=== PATIENT | female | born 1955 | race Caucasian/White ===

== ENCOUNTER 2022-04-14 11:50 | Outpatient (CLI) | payer MEDICARE, OTHER, SELFPAY ==
--- OUTSIDE RECORDS SUMMARY | 2022-04-14 11:53 | XMS_ITS ---
:1955 Author Care Team Providers Name Role Phone Selena Presley A Primary Care Provider Unavailable Allergies Code Code System Name Reaction Severity Status Onset Penicillins ? ? Active ? Sulfa (Sulfonamide Antibiotics) ? ? Active ? Medications Name Status Start Date Stop Date ? ? amitriptyline 50 mg tablet Active ? Not a vailable atorvastatin 20 mg tablet Active ? Not av ailable TAKE ONE TABLET BY MOUTH ONE TIME DAILY carvedilol 12.5 mg tablet Active ? Not av ailable cholecalciferol (vitamin D3) 125 mcg (5,000 unit) tablet Active ? Not available Take 1 tablet every day by oral route. epinephrine 0.3 mg/0.3 mL injection, auto-injector Active ? Not available Take 0.3 mL as needed by injection route. Flovent HFA 110 mcg/actuation aerosol inhaler Active ? Not available Inhale 2 puffs twice a day by inhalation route. hydrocodone 10 mg-acetaminophen 325 mg tablet Completed ? 10/21/2018 hydrocodone 5 mg-acetaminophen 325 mg tablet Active ? Not available TAKE 0.5 to 1 TABLET BY ORAL ROUTE EVERY 6 HOURS NEEDED FOR PAIN levothyroxine 50 mcg tablet Active ? Not available levothyroxine 75 mcg tablet Active ? Not available TAKE ONE TABLET BY MOUTH ONE TIME DAILY losartan 100 mg tablet Active ? Not avail able losartan 50 mg tablet Active ? Not availa ble Take 2 tablets every day by oral route. Medrol (Sathya) 4 mg tablets in a dose pack Completed ? 04/14/2018 as directed with food metformin 500 mg tablet Active ? Not avai lable metoprolol succinate ER 100 mg tablet,extended release 24 hr Act galilea ? Not available Take 1 tablet every day by oral route. mupirocin 2 % topical ointment Active ? N ot available pravastatin 20 mg tablet Active ? Not mookie ilable ProAir HFA 90 mcg/actuation aerosol inhaler Active ? Not available Inhale 2 puffs every 4 hours by inhalation route. sumatriptan 50 mg tablet Active ? Not mookie ilable TAKE 1 TABLET BY MOUTH NEEDED DIRECTED temazepam 15 mg capsule Active ? Not avai lable Take 1 capsule every day by oral route. triamcinolone acetonide 0.1 % topical cream Active ? Not available APPLY A THIN LAYER TO THE AFFECTED AREA(S) BY TOPICAL ROUTE 2 T IMES PER DAY triamterene 75 mg-hydrochlorothiazide 50 mg tablet Active ? Not available TAKE ONE TABLET BY MOUTH ONE TIME DAILY Problems Name Status Onset Date Source ? Hypertensive Disorder Active 03/02/2018 ? Hypothyroidism Active 04/14/2018 ? Hyperlipidemia Active 04/14/2018 ? Obstructive Sleep Apnea Syndrome Active 04/14/2018 ? Chronic Pain Active 04/14/2018 ? Asthma Active 04/14/2018 ? Chronic Kidney Disease Stage 4 Active 04/14/2018 ? Hyperglycemia Active 04/14/2018 ? Hypoxia Active 04/14/2018 ? Adhesive Capsulitis of Left Shoulder Active 04/14/2018 ? Insomnia Active 12/01/2018 ? Procedures Date Name Performed by ? ? Delivery Information not avai lable Notes: 1976 ? Delivery Information not avai lable Notes: 1974 04/16/2018 XR, Chest, 2 View Information not avai lable Results Lab Results Date Name Specimen Result Interpretation Description Value Range Status Address ? 04/13/2018 Microalbumin/creatinine, ? Creatinine, 78. 0 not Final [facility]: Mass Ratio, Urine Urine mg/dL estab. 8490 mg/dL [address] ? ? ? Albumin, 369.8 not Final [facility] : Urine ug/mL estab. 8490 ug/mL [address] [place] ? ? Abo Alb/creat 474.1 0.0-30. Final [facility]: ve Ratio mg/g 0 mg/g 8490 Hig creat creat [address] [facility] 04/13/2018 Culture, Urine ? Urine final ? Final [facility]: Culture,compr report [id number] ehensive [address] [place] ? ? ? Result 1 comment ? Final [facility] p: [address] 04/13/2018 Urinalysis, Dipstick ? Leukocytes 125, ++ ? ? Main Office: [address] [address], [place] ? ? ? Nitrite negativ ? ? Main e Office: [address], [place] ? ? ? Urobilinogen N ? ? Jami n Office: [address], [place] ? ? ? Protein 30, + ? ? Main Office: [address], [place] ? ? ? Ph 6 ? ? Main Office: [address], [place] ? ? ? Blood ++ ? ? Main Office: [address], [place] ? ? ? Specific 1.015 ? ? Main [place] Office: [address], [place] ? ? ? Ketone N ? ? Main Office: [address], [place] ? ? ? Bilirubin N ? ? Main Office: [address], [place] ? ? ? Glucose N ? ? Main Office: [address], [place] ? ? ? Appearance Cloudy ? ? Main Office: [address], [place] ? ? ? Color Light ? ? Main [place] Office: [address], [place] 04/12/2018 CBC W/ Auto Diff ? Wbc 8.1 3.4-10. Fi nal [facility]: x10e3/u 8 8490 L x10e3/u [address] [place], [place] ? ? ? Rbc 4.42 3.77-5. Final [facility]: x10e6/u 28 8490 L x10e6/u [address] Angie [place], [place] ? ? ? Hemoglobin 13.1 11.1-15 Final [facility]: g/dL .9 g/dL [address] [place], [place] ? ? ? Hematocrit 39.4 % 34.0-46 Final [facility]: .6 % [address] [place], [place] ? ? ? Mcv 89 fL 79-97 Final [facility]: fL [address] [place], [place] ? ? ? Mch 29.6 pg 26.6-33 Final [facility]: .[address] [place], [place] ? ? ? Mchc 33.2 31.5-35 Final [facility]: g/dL .7 g/dL [address], [place] ? ? ? Rdw 14.3 % 12.3-15 Final [facility]: .4 % [address], [place] ? ? ? Platelets 289 150-379 Final [facility]: x10e3/u x10e3/u [address], [place] ? ? ? Neutrophils 62 % not Final [facility]: estab. 8490 % [address], [place] ? ? ? Lymphs 28 % not Final [facility]: estab. 8490 % [address], [place] ? ? ? Monocytes 6 % not Final [facility]: estab. 8490 % [address], [place] ? ? ? Eos 2 % not Final [facility]: estab. 8490 % [address], [place] ? ? ? Basos 1 % not Final [facility]: estab. 8490 % [address], [place] ? ? ? 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 Cancell [facility]: Cells ed [address], [place] ? ? ? Neutrophils 5.2 1.4-7.0 Final [facility]: (Absolute) x10e3/u x10e3/u [address], [place] ? ? ? Lymphs 2.3 0.7-3.1 Final [facility]: (Absolute) x10e3/u x10e3/u [address], [place] ? ? ? Monocytes(ab 0.5 0.1-0.9 Final [facility]: solute) x10e3/u x10e3/u [address], [place] ? ? ? Eos 0.2 0.0-0.4 Final [facility]: (Absolute) x10e3/u x10e3/u [address], [place] ? ? ? Baso 0.1 0.0-0.2 Final [facility]: (Absolute) x10e3/u x10e3/u [address], [place] ? ? ? Immature 1 % not Final [facility] : Granulocytes estab. 8490 % [address], [place] ? ? ? Immature 0.0 0.0-0.1 Final [facility]: Grans (Abs) x10e3/u x10e3/u [address] [place], [place] ? ? ? Nrbc smocking machine operator ? Cancell [facility]: ed [address] [place], [place] ? ? ? 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 Cancell [facility]: Comments: ed [address] [place], [place] 04/12/2018 CMP, Serum or Plasma Abo Glucose 109 65-9 9 Final [facility]: ve mg/dL mg/dL [address], [place] ? ? Abo Bun 34 8-27 Final [facility]: ve mg/dL mg/dL [address] ye [place], [place] ? ? Abo Creatinine 1.45 0.57-1. Final [facility]: ve mg/dL 00 8490 Hig mg/dL [address] ye Churchill [place], [place] ? ? Bel eGFR If 38 >59 Final [facility]: ow Nonafricn AM mL/min/ mL/min/ 84 90 Low 1.[address], [place] ? ? Bel eGFR If 44 >59 Final [facility]: ow Africn AM mL/min/ mL/min/ 8490 Low 1.[address], [place] ? ? ? BUN/creatini 23 12-28 Final [facility]: ne Ratio [address], [place] ? ? ? Sodium 141 134-144 Final [facility]: mmol/L mmol/L [address] [place], [place] ? ? ? Potassium 4.2 3.5-5.2 Final [facility]: mmol/L mmol/L [address], [place] ? ? ? Chloride 102 96-106 Final [facility] : mmol/L mmol/L [address], [place] ? ? ? Carbon 23 20-29 Final [facility]: Dioxide, mmol/L mmol/L [address], [place] ? ? ? Calcium 9.5 8.7-10. Final [facility] : mg/dL 3 mg/dL [address], [place] ? ? ? Protein, 7.1 6.0-8.5 Final [facility]: Total g/dL g/dL [address], [place] ? ? ? Albumin 3.9 3.6-4.8 Final [facility] : g/dL g/dL [address], [place] ? ? ? Globulin, 3.2 1.5-4.5 Final [facility]: Total g/dL g/dL [address] [place], [place] ? ? ? A/g Ratio 1.2 1.2-2.2 Final [facility]: [address] [place], [place] ? ? ? Bilirubin, 0.7 0.0-1.2 Final [facility]: Total mg/dL mg/dL [address] [place], [place] ? ? ? Alkaline 94 IU/L 39-117 Final [facility]: Phosphatase IU/L [address] [place], [place] ? ? ? Ast (Sgot) 18 IU/L 0-40 Final [facility]: IU/L [address] [place], [place] ? ? ? Alt (Sgpt) 22 IU/L 0-32 Final [facility]: IU/L [address] [place], [place] 04/12/2018 Lipid Panel, Serum ? Cholesterol, 184 1 00-199 Final [facility]: Total mg/dL mg/dL [address] [place], [place] ? ? Abo Triglyceride 181 0-149 Final [facility]: ve s mg/dL mg/dL [address] [place], [place] ? ? ? HDL 43 >39 Final [facility]: Cholesterol mg/dL mg/dL [address] [place], [place] ? ? ? VLDL 36 5-40 Final [facility]: Cholesterol mg/dL mg/dL [address] [place], [place] ? ? Abo LDL 105 0-99 Final [facility]: ve Cholesterol mg/dL mg/dL [address] [place], [place] ? ? ? 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 Cancell [facility]: ed [address] [place], [place] 04/12/2018 HbA1C (Hemoglobin a1C), Abo Hemoglobin 5.9 % 4.8-5.6 Final [facility]: Blood ve a1C % [address] [place], [facility] 04/12/2018 TSH, Ultra-sensitive, ? Tsh 3.090 0.450 -4 Final [facility]: Serum uIU/mL .500 8490 uIU/mL [address] [place], [place] 04/12/2018 Vitamin D, 25-Hydroxy, ? Vitamin D, 47.3 30.0-10 Final [facility]: Total, Serum 25-Hydroxy NG/mL 0.0 8490 NG/mL [address] [place], [place] 04/12/2018 T4, Total, Serum ? Thyroxine 7.2 4.5-12 . Final [facility]: (T4) ug/dL 0 ug/dL [address], [place] 04/12/2018 T3, Free, Serum or Plasma ? Triiodothyro 2 .4 2.0-4.4 Final [facility]: nine (T3), pg/mL pg/mL [address], [place] Past Encounters None recorded. Social History Tobacco Smoking Status Never Smoker Vaccine List None recorded. Plan of Care Reminders Provider Appointments None recorded. ? ? Lab None recorded. ? ? Referral None recorded. ? ? Procedures None recorded. ? ? Surgeries None recorded. ? ? Imaging None recorded. ? ? Vitals 12/07/2018 11:30AM Office Visit Height Weight BMI Blood Pressure 5 ft 4 in 253.8 lbs 43.6 kg/m2 140/90 mm[Hg] 04/27/2018 10:00AM Medication/Refill Height Weight BMI Blood Pressure 5 ft 4 in 259 lbs 44.5 kg/m2 138/90 mm[Hg] 04/13/2018 10:30AM Medication/Refill Height Weight BMI Blood Pressure 5 ft 4 in 255.8 lbs 43.9 kg/m2 122/86 mm[Hg] 03/02/2018 02:30PM New Patient Height Weight BMI Blood Pressure 5 ft 4 in 261.8 lbs 44.9 kg/m2 132/90 mm[Hg]
[2022-04-15 14:24] LABS: Albumin* 4.5 g/dL (3.3-5.0); Chloride* 101 mmol/L (96-114); Potassium* 4.8 mmol/L (3.6-5.1); Sodium* 139 mmol/L (135-149)
[2022-04-15 14:26] LABS: Carbon Dioxide* 29 mmol/L (20-32); Creatinine* 1.1 mg/dL (0.5-1.5); Estimated Glomerular Filt Rate 55 ml/min
[2022-04-15 14:27] LABS: Alanine Aminotransferase* 27 U/L (4-35); Alkaline Phosphatase* 95 U/L (40-150); Aspartate Amino Transferase* 25 U/L (12-35); Blood Urea Nitrogen* 19 mg/dL (7-30); Calcium* 10.2 mg/dL (8.4-10.6); Glucose* 100 mg/dL (60-115)
[2022-04-15 14:40] LABS: Creatinine Urine 22.6 mg/dL
[2022-04-15 14:44] LABS: Microalbumin Creatinine Ratio 220 mg/g (0-30); Microalbumin Urine 5 mg/dL
== END 2022-04-14 11:51 | disposition home or self-care (01) ==
PROVIDERS: PCP Physician Assistant Medical; Visit Provider Physician Assistant Medical
DX: Z00.00 Encounter for general adult medical examination without abnormal findings (principal); I10 Essential (primary) hypertension; D64.9 Anemia, unspecified; E03.9 Hypothyroidism, unspecified; N18.31 Chronic kidney disease, stage 3a; E78.5 Hyperlipidemia, unspecified
CPT/HCPCS: 80053; 82043; 82570; 84443

== ENCOUNTER 2022-10-28 09:50 | Outpatient (CLI) | payer MEDICARE, OTHER, SELFPAY ==
--- OUTSIDE RECORDS SUMMARY | 2022-10-29 12:00 | XMS_ITS | Continuity of Care Document ---
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 [address] [facility] [place], [place], [id number], [place]. tel:[phone] Family History Family Member Type Diagnosis Age At Onset No Information Payers Payer name Insurance type Covered republican ID Authoriza tion(s) No Information Social History Type Description Quantity Date Captured Comments Sex Female Smoking Status No Information Chief Complaint And Reason For Visit No Information Reason For Referral Reason For Referral No Information Plan Of Treatment Date Type Action Status No Information History Of Present Illness Encounter Date Complaint History Of Prese nt Illness No Information Functional Status Date Functional Assessmen t No Information Instructions Date Instruction Additional Infor mation No Information Assessments Type Assessment Date No Information Patient Care Teams Name Effective Dates (start - stop) Status Members No Information
== END 2022-10-28 09:51 | disposition home or self-care (01) ==
PROVIDERS: PCP Physician Assistant Medical; Referring Provider Physician Assistant Medical; Visit Provider Internal Medicine Nephrology
DX: D64.9 Anemia, unspecified (principal); E78.5 Hyperlipidemia, unspecified; I10 Essential (primary) hypertension; N18.31 Chronic kidney disease, stage 3a; R73.03 Prediabetes
CPT/HCPCS: 80061; 80069; 82043; 82570; 84550

== ENCOUNTER 2023-04-23 10:22 | Outpatient (CLI) | payer MEDICARE, OTHER, SELFPAY ==
--- OUTSIDE RECORDS SUMMARY | 2023-04-27 10:59 | XMS_ITS | Continuity of Care Document ---
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 [address], [place], [id number], [place]. tel:[phone] Family History Family Member Type Diagnosis Age At Onset No Information Payers Payer name Insurance type Covered constitution party ID Authoriza tion(s) No Information Social History Type Description Quantity Date Captured Comments Sex Female Smoking Status No Information Chief Complaint And Reason For Visit No Information Reason For Referral Reason For Referral No Information History Of Present Illness Encounter Date Complaint History Of Prese nt Illness No Information Functional Status Date Functional Assessmen t No Information Instructions Date Instruction Additional Infor mation No Information Assessments Type Assessment Date No Information Patient Care Teams Name Effective Dates (start - stop) Status Members No Information
== END 2023-04-23 10:23 | disposition home or self-care (01) ==
LOC: NFLDREF 04-27 10:55
PROVIDERS: PCP Physician Assistant Medical; Referring Provider Physician Assistant Medical; Visit Provider Physician Assistant Medical
DX: E78.5 Hyperlipidemia, unspecified (principal); G47.00 Insomnia, unspecified; I10 Essential (primary) hypertension; E03.9 Hypothyroidism, unspecified; J45.909 Unspecified asthma, uncomplicated; G43.909 Migraine, unspecified, not intractable, without status migrainosus; R73.03 Prediabetes; D64.9 Anemia, unspecified; Z00.00 Encounter for general adult medical examination without abnormal findings; F41.9 Anxiety disorder, unspecified; R60.0 Localized edema; M25.512 Pain in left shoulder; G89.29 Other chronic pain; N18.31 Chronic kidney disease, stage 3a; Z12.11 Encounter for screening for malignant neoplasm of colon
CPT/HCPCS: 80053; 80061; 82043; 82570; 84443

== ENCOUNTER 2023-10-05 10:52 | Outpatient (CLI) | payer MEDICARE, SELFPAY | END 2023-10-05 10:53 | disposition home or self-care (01) | LOC: LKVREF 10:53 | PROVIDERS: PCP Physician Assistant Medical; Visit Provider Physician Assistant Medical | DX: I12.9 Hypertensive chronic kidney disease with stage 1 through stage 4 chronic kidney disease, or unspecified chronic kidney disease (principal); N18.31 Chronic kidney disease, stage 3a | CPT/HCPCS: 83880 ==